=== PATIENT | female | born 1955 | race Caucasian/White ===

== ENCOUNTER 2018-07-10 15:01 | Outpatient (CLI) | payer OTHER, SELFPAY ==
--- NOTE | 2018-07-10 14:59 | DI.RAD_ITS ---
SYMPTOMS/DIAGNOSIS: F/U HX OF DISTAL RADIUS FX, RADIAL PAIN LEFT WRIST: Three views were obtained. There is minimal deformity of the distal radius consistent with a healed fracture. The carpal alignment appears within normal limits. No other bony abnormality seen.
== END 2018-07-10 15:21 ==
PROVIDERS: PCP Family Medicine; Visit Provider Student in an Organized Health Care Education/Training Program
DX: M25.532 Pain in left wrist (principal); S52.572D Other intraarticular fracture of lower end of left radius, subsequent encounter for closed fracture with routine healing
CPT/HCPCS: 73110

== ENCOUNTER 2018-07-25 12:47 | Day surgery (SDC) | payer OTHER, SELFPAY ==
[2018-07-25 12:58] VITALS: BP 161/50; PULSE 70; RESP 18; TEMP 36; O2SAT 98
--- NOTE | 2018-07-25 14:06 | W.PM.DSUDISC ---
Discharge Plan Disposition Patient Disposition: HOME Condition: Good Discharge Details Reason For Visit: Left Dequervain's Tenosynovitis Attending Provider: Kyle Browning Primary Care Provider: Aparna Crocker Home Meds and New Rx's Prescriptions: New hydrocodone-acetaminophen 5-325 mg tablet 1 tab PO Q4H PRN (Reason: pain) Qty: 5 RF: 0 ibuprofen 600 mg tablet 600 mg PO TID PRNQty: 90 RF: 3 acetaminophen 500 mg capsule 1,000 mg PO Q8H PRN (Reason: pain) Qty: 90 RF: 0 Continue carvedilol [Coreg] 6.25 MG tablet 6.25 mg PO BID Qty: 180 RF: 5 lisinopril 10 MG tablet 10 mg PO DAILY Qty: 90 RF: 3 Discharge Instructions Additional Instructions: Activity: You should keep the hand elevated as much as possible for the first few days. You may use the other fingers as tolerated but avoid trying to do too much too soon. You may perform light activities with the splint in place. Dressing/Cast: Your splint should stay in place at all times. Do NOT get it wet. You may loosen the SERA wrap if you feel it is too tight and then rewrap more loosely. Medications: - You should take Tylenol and Ibuprofen for baseline pain control. - You have Hydrocodone for breakthrough pain. - You may apply ice over the thumb. Follow-up: 7-10 days Equipment/Supplies: Splint and Sling Activity:: Elevate Remove Dressings/Wound Care:: Do Not Remove Shower/Bathe:: Cover Diet:: As Tolerated Discharge Orders Discharge Orders: Discharge Order (Routine); Ordered 07/25/18 Ordered By: Kyle Browning DS: Diagnosis Discharge Diagnosis (1) De Quervain's tenosynovitis, left: Status: Acute
[2018-07-25] MEDS: Lactated Ringers 1,000 ML 80 ML IV (14:07)
[2018-07-25] MEDS: Lidocaine 1% Pres-Free 5 ML VIAL (14:53)
[2018-07-25] MEDS: Acetaminophen 325 MG TAB 650 MG PO (15:32)
[2018-07-25 15:45] VITALS: BP 149/68; PULSE 82; RESP 16; TEMP 36.7; O2SAT 94
--- NOTE | 2018-07-26 06:36 | ROE_ITS ---
Date of service: 07/25/18 Time of Service: 15:33 Operative Note DATE OF PROCEDURE: 07/25/18 PRE-OP DIAGNOSIS: Left Dequervain's Tenosynovitis POST-OP DIAGNOSIS: same PROCEDURE: Left First Extensor Compartment Release SURGEON: Kyle Browning ANESTHESIA: MAC ESTIMATED BLOOD LOSS: 0 PATHOLOGY: none sent TOURNIQUET TIME: 13 COMPLICATIONS: None Patient was transported to: same day Patient's condition: stable Indications: Hanh is a 62-year-old female who has had symptoms of Dequervain's tenosynovitis. Nonoperative treatment options had been trialed. Given their failure, I offered operative intervention. I reviewed the technical details of a first extensor compartment release. I reviewed the risk of the procedure to include bleeding, infection, pain, stiffness, tendon instability, damage to the superficial radial nerve, and complete release. Despite these risks, the patient elected to proceed. Findings: There was a tightened first extensor compartment. There was a small sub-compartment of the EPB tendon which is released separately. There also was a bony ridge from previous distal radius fracture which was smoothed down with a rongeur and rasp. Procedure Description: Hanh was greeted in the preoperative holding area. Name and surgical site were confirmed. The history and physical was completed. The consent was reviewed the patient and signed. Hanh was taken back to the operating room. The patient was placed and monitored anesthesia care. The left was then prepped with ChloraPrep and draped in a standard fashion after a nonsterile tourniquet was placed high up onto the arm. Prophylactic antibiotics in the form of cefazolin were administered. A timeout was performed for safe surgery. The surgical site was drawn on the skin. The planned surgical field was anesthetized with 0.25% bupivacaine with epinephrine. The limb was exsanguinated and the tourniquet was inflated where it stayed for 13 minutes. A 2 cm incision was made longitudinally over the radial styloid. The skin was incised only. The deep tissue and subcutaneous fat was dissected with a tenotomy scissors trying to protect bridge of the superficial radial nerve. Any branches that were identified were retracted out of the way. The first compartment extensor tendons were then identified. The distal aspect of the first compartment was noted and were released. This release was performed more on the dorsal side to prevent tendon subluxation. The entirety of the first extensor compartment was then released. The slips of the abductor pollicis longus tendon were inspected. They removed to confirm the appropriate motion of the thumb. The extensor pollicis brevis tendon was then identified. It did reside within a separate sub-compartment which was fully released. Traction on the tendon was also used to confirm appropriate extension of the thumb confirming the release of the appropriate tendon. The dorsal radial surface of the radius was once again inspected to make sure there are no other sub- compartments or other restrictions to tendon motion. The wound was then thoroughly irrigated. The deep tissue was closed with a 3-0 Vicryl. The skin was closed with a running subjective 4-0 Monocryl. Skin glue was applied. The tourniquet is released without significant bleeding. The hand was dressed with 4 x 4's, web roll, thumb spica splint. All counts are correct. Patient was transferred back to same day surgery area in stable condition.
== END 2018-07-25 16:35 | disposition home or self-care (01) ==
PROVIDERS: PCP Family Medicine; Visit Provider Student in an Organized Health Care Education/Training Program
PROC: (CPT 25000; principal; 2018-07-25 13:45)
DX: M65.4 Radial styloid tenosynovitis [de Quervain] (principal)
CPT/HCPCS: 25000 ×2; J0690; J2405; L3650

== ENCOUNTER 2018-08-27 00:43 | Outpatient (CLI) | payer OTHER, SELFPAY ==
--- NOTE | 2018-08-27 07:30 | MERGE_ITS ---
*[facility]* *[facility]* [address] [place] [address] Date of study: 08/27/2018 Transthoracic Echocardiography M-mode, complete 2D, complete spectral Doppler, and color Doppler *STUDY CONCLUSIONS* Summary: 1. Left ventricle: The cavity size was normal. Wall thickness was normal. Systolic function was at the lower limits of normal. The estimated ejection fraction was 50-55%. Wall motion was normal; there were no regional wall motion abnormalities. 2. Mitral valve: Moderately thickened leaflets. Mild, late systolicprolapse, involving the anterior leaflet. There was mild regurgitation. 3. Right ventricle: The cavity size was normal. Wall thickness was normal. Pacer wire noted in right ventricle. Systolic function was normal. *PATIENT PRESENTATION* Height: 170.2cm ((67in) ) S/D Pressure: 145 / 82 Weight: 56.7kg ((124.7lb) ) BSA: 1.63m^2 Test start time: 07:40 AM. Test stop time: 08:40 AM. CONSULTING Aparna Crocker Kim Fnp-Bc REFERRING Gianna Stockton-Harsha PERFORMING [facility] TUBE WRAPPER RT Ryan RDCS (R CT) *PROCEDURE DATA* Procedure information: The patient was identified by two identifiers. This study was interpreted by [facility]. Pertinent images and digital data are archived for permanent storage and are available for subsequent review. Comparison was made to the study of 2014. Study status: Routine. Transthoracic echocardiography. M-mode, complete 2D, complete spectral Doppler, and color Doppler. A Transthoracic Echocardiogram was performed. Scanning was performed from the parasternal, apical, subcostal, and suprasternal notch acoustic windows. Images were obtained using an [id number] cardiac ultrasound machine. Image quality was adequate. Study completion: The patient tolerated the procedure well. There were no complications. History: PMH: Idopathic cardimyopathy. *CARDIAC ANATOMY* Left ventricle: The cavity size was normal. Wall thickness was normal. Systolic function was at the lower limits of normal. The estimated ejection fraction was 50-55%. Wall motion was normal; there were no regional wall motion abnormalities. Aortic valve: Trileaflet; mildly thickened, mildly calcified leaflets. Mobility was not restricted. Doppler: Transvalvular velocity was within the normal range. There was no stenosis. There was no significant regurgitation. VTI ratio of LVOT to aortic valve: 0.73. Valve area (VTI): 2.3cm^2. Indexed valve area (VTI): 1.4cm^2/m^2. Peak velocity ratio of LVOT to aortic valve: 0.72. Valve area (Vmax): 2.2cm^2. Indexed valve area (Vmax): 1.4cm^2/m^2. Mean velocity ratio of LVOT to aortic valve: 0.75. Valve area (Vmean): 2.3cm^2. Indexed valve area (Vmean): 1.4cm^2/m^2. Mean gradient (S): 3.1mm Hg. Peak gradient (S): 6mm Hg. Aorta: Aortic root: The aortic root was normal in size. Ascending aorta: The ascending aorta was normal in size. Mitral valve: Moderately thickened leaflets. Mobility was not restricted. Mild, late systolicprolapse, involving the anterior leaflet. Doppler: Transvalvular velocity was within the normal range. There was no evidence for stenosis. There was mild regurgitation. Valve area by pressure half-time: 3.3cm^2. Indexed valve area by pressure half-time: 2cm^2/m^2. Left atrium: The atrium was normal in size. Right ventricle: The cavity size was normal. Wall thickness was normal. Pacer wire noted in right ventricle. Systolic function was normal. Pulmonic valve: The pulmonary valve appears to be grossly normal. Doppler: Transvalvular velocity was within the normal range. There was no evidence for stenosis. There was trivial regurgitation. Peak gradient (S): 1.9mm Hg. Tricuspid valve: Structurally normal valve. Doppler: Transvalvular velocity was within the normal range. There was no evidence for stenosis. There was trivial regurgitation. Pulmonary artery: Pulmonary systolic pressure was within the normal range, in the range of 30mm Hg to 35mm Hg. Right atrium: The atrium was normal in size. Pacer wire noted in right atrium. Pericardium: There was no pericardial effusion. Systemic veins: Inferior vena cava: Well visualized. The vessel was patent and normal in size. The respirophasic diameter changes were in the normal range (greater than or equal to 50%). Baseline ECG: Paced rhythm. Measurements Left ventricle Value Reference LV ID, ED, PLAX 4.7 cm 3.5 - 6.0 LV ID, ES, PLAX 3.6 cm 2.1 - 4.0 LV PW thickness, ED, PLAX 1.0 cm LV end-diastolic volume, 1-p A2C 91 ml LV ejection fraction, 1-p A2C 59 % LV end-diastolic volume, 1-p A4C 85 ml LV ejection fraction, 1-p A4C 48 % LV e', lateral 0.059 m/sec LV E/e', lateral 9 LV e', medial 0.049 m/sec LV E/e', medial 11 LV e', average 0.054 m/sec LV E/e', average 10 Ventricular septum Value Reference IVS thickness, ED, PLAX 1.0 cm LVOT Value Reference LVOT ID, A-P 2.0 cm LVOT area 3.1 cm^2 LVOT peak velocity, S 0.89 m/sec LVOT mean velocity, S 0.63 m/sec LVOT VTI, S 16.9 cm LVOT peak gradient, S 3.2 mm Hg LVOT mean gradient, S 1.8 mm Hg Stroke volume (SV), LVOT DP 52 ml Stroke index (SV/bsa), LVOT DP 32 ml/m^2 Aortic valve Value Reference Aortic valve peak velocity, S 1.2 m/sec Aortic valve mean velocity, S 0.83 m/sec Aortic valve VTI, S 23.0 cm Aortic mean gradient, S 3.1 mm Hg Aortic peak gradient, S 6 mm Hg VTI ratio, LVOT/AV 0.73 Aortic valve area, VTI 2.3 cm^2 Velocity ratio, peak, LVOT/AV 0.72 Aortic valve area, peak velocity 2.2 cm^2 Velocity ratio, mean, LVOT/AV 0.75 Aortic valve area, mean velocity 2.3 cm^2 Aortic valve area/bsa, mean velocity 1.4 cm^2/m^2 Aorta Value Reference Aortic root ID, ED 3.0 cm Left atrium Value Reference LA ID, A-P, ES 3.0 cm LA ID/bsa, A-P 1.9 cm/m^2 <=2.2 LA area, ES, A4C 15.9 cm^2 8.8 - 23.4 LA area, ES, A2C 16 cm^2 LA volume/bsa, ES, 1-p A4C 29 ml/m^2 LA volume, ES, 2-p 41 ml LA volume/bsa, ES, 2-p 25 ml/m^2 LA/aortic root ratio 1.02 Mitral valve Value Reference Mitral E-wave peak velocity 0.52 m/sec Mitral A-wave peak velocity 0.62 m/sec Mitral deceleration time 228 ms 150 - 230 Mitral pressure half-time 66 ms Mitral E/A ratio, peak 0.83 Mitral valve area, PHT, DP 3.3 cm^2 Pulmonary veins Value Reference Pulmonary vein peak velocity, S 0.56 m/sec Pulmonary vein peak velocity, D 0.46 m/sec Pulmonary vein velocity ratio, peak, 1.2 S/D Pulmonary vein A-wave reversal peak 0.36 m/sec velocity Tricuspid valve Value Reference Tricuspid regurg peak velocity 2.8 m/sec Tricuspid peak RV-RA gradient 30.5 mm Hg Right atrium Value Reference RA area, ES, A4C 13.9 cm^2 8.3 - 19.5 Pulmonic valve Value Reference Pulmonic peak gradient, S 1.9 mm Hg Legend: (L) and (H) loyda values outside specified reference range. I have personally reviewed the images and have reviewed and edited the reported findings. Electronically signed by Mt Thurman 08/27/2018 10:37
== END 2018-08-27 01:03 ==
PROVIDERS: PCP Family Medicine; Visit Provider Nurse Practitioner Family
DX: I42.9 Cardiomyopathy, unspecified (principal); I34.0 Nonrheumatic mitral (valve) insufficiency; Z95.0 Presence of cardiac pacemaker
CPT/HCPCS: 93306

== ENCOUNTER 2018-08-30 07:37 | Outpatient (CLI) | payer OTHER, SELFPAY ==
[2018-08-30 08:37] LABS: Hemoglobin A1C 5.8 % (4.5-6.2)
[2018-08-30 09:24] LABS: ALT 21 U/L (12-78); AST 18 U/L (15-37); Albumin 3.5 g/dL (3.4-5.0); Alkaline Phosphatase 103 U/L (46-116); BUN 12 mg/dL (7-18); Bilirubin, Total 0.7 mg/dL (0.2-1.0); CREATININE 0.69 mg/dL (0.55-1.02); Calcium 8.9 mg/dL (8.5-10.1); Chloride 107 mmol/L (98-107); Cholesterol 178 mg/dL (50-200); Glucose 102 mg/dL (70-100); HDL Cholesterol 54 mg/dL (40-60); LDL CHOLESTEROL 111 mg/dL (<100); Magnesium 1.8 mg/dL (1.8-2.4); Potassium 4.7 mmol/L (3.5-5.1); Sodium 143 mmol/L (136-145); TSH 2.23 uIU/mL (0.358-3.74); Total Protein 6.8 g/dL (6.4-8.2); Triglyceride 71 mg/dL (30-150)
== END 2018-08-30 07:57 ==
PROVIDERS: PCP Family Medicine; Visit Provider Nurse Practitioner Family
DX: Z00.00 Encounter for general adult medical examination without abnormal findings (principal); I42.9 Cardiomyopathy, unspecified; R73.9 Hyperglycemia, unspecified
CPT/HCPCS: 36415; 80053; 80061; 83721; 83036; 83735; 84443

== ENCOUNTER 2020-04-09 03:56 | Outpatient (CLI) | payer OTHER, SELFPAY ==
--- NOTE | 2020-04-09 06:15 | DI.MAMMO_ITS ---
EXAM: MAMMO SCREENING CLINICAL HISTORY: screening,z12.39 TECHNIQUE: Mammograms were interpreted according to the usual protocol including computer analysis w [employer] CAD system, tomosynthesis and C-view imaging. COMPARISON: 2014 through 2017 FINDINGS: The breasts are composed of scattered fibroglandular densities, Breast Density category B. A pacemaker over the left upper chest wall somewhat limits positioning of the left MLO view. No suspicious masses or suspicious microcalcifications are seen. No skin thickening or abnormal axillary lymph nodes are seen. There has been no significant change from prior exams. IMPRESSION: BI-RADS Category 1, Negative mammogram Yearly screening mammography is recommended. Breast Density - Category B, scattered fibroglandular densities. A negative radiographic report should not delay biopsy if a dominant or clinically suspicious mass is present. Up to ten percent of cancers are not identified on mammography. A negative report may reinforce clinical impression. Adenosis and dense breasts may obscure an underlying neoplasm. False positive reports average 6 to 10%. Patient will receive a letter notifying them of these results.
== END 2020-04-09 04:16 ==
PROVIDERS: PCP Family Medicine; Visit Provider Family Medicine
DX: Z12.31 Encounter for screening mammogram for malignant neoplasm of breast (principal); R92.2 Inconclusive mammogram
CPT/HCPCS: 77063; 77067

== ENCOUNTER 2021-07-26 02:49 | Outpatient (CLI) | payer OTHER, SELFPAY ==
[2021-07-26 07:53] LABS: Hemoglobin A1C 5.7 % (<5.7)
[2021-07-26 08:49] LABS: ALT 27 U/L (14-59); AST 20 U/L (15-37); Albumin 3.6 g/dL (3.4-5.0); Alkaline Phosphatase 91 U/L (46-116); Anion Gap 7.1 mmol/L (3-11); BUN 23 mg/dL (7-18); Bilirubin, Total 0.4 mg/dL (0.2-1.0); CO2 31.9 mmol/L (21.0-32.0); CREATININE 0.8 mg/dL (0.55-1.02); Calcium 9.3 mg/dL (8.5-10.1); Calculated LDL 120 mg/dL (<100); Chloride 103 mmol/L (98-107); Cholesterol 184 mg/dL (<200); Glucose 128 mg/dL (74-106); HDL Cholesterol 36 mg/dL (40-60); Potassium 4.5 mmol/L (3.5-5.1); Sodium 142 mmol/L (136-145); Total Protein 7.1 g/dL (6.4-8.2); Triglyceride 140 mg/dL (<150)
== END 2021-07-26 02:50 | disposition home or self-care (01) ==
LOC: LBO 02:50
PROVIDERS: PCP Family Medicine; Visit Provider Family Medicine
DX: I10 Essential (primary) hypertension (principal); Z00.00 Encounter for general adult medical examination without abnormal findings
CPT/HCPCS: 36415; 80053; 80061; 83036

== ENCOUNTER 2021-08-05 01:05 | Outpatient (CLI) | payer OTHER, SELFPAY ==
--- NOTE | 2021-08-05 06:45 | DI.MAMMO_ITS ---
Exam(s) MAMMO SCREENING EXAM: MAMMO SCREENING CLINICAL HISTORY: screening,z12.39 TECHNIQUE: Bilateral full field digital CC and MLO mammographic images were obtained with 3D tomosyn thesis and utilizing computer aided detection (CAD). COMPARISON: Available for comparison. FINDINGS: Masses/Architectural Distortion: None seen. Microcalcifications: No suspicious pleomorphic-type are seen. Skin Thickening/Nipple Retraction: None. Other: The patient is left pacing device limits positioning on the left MLO view. IMPRESSION: 1. No significant interval change with no specific features of malignancy noted. 2. Unless there is more urgent need, screening mammography is recommended, as per [employer] guidelines. BI-RADS Category 1 - Negative Breast Density - Category B - Scattered areas of fibroglandular density Breast density category C or D implies that the patient has dense breast tissue. Dense breast tissue is very common and is not abnormal but dense breast tissue can make it harder to find cancer on a ma mmogram. Also, dense breast tissue may increase their breast cancer risk. This information about the result of the mammogram report was provided to the patient to raise their awareness. Use this report when you speak with the patient about their risks for breast cancer, which includes their family hist ory. At that time, you may recommend for more screening tests (Ultrasound or MRI) as they might be us eful based on their risk. A negative radiographic report should not delay biopsy if a dominant or clinically suspicious mass is present. Up to ten percent of cancers are not identified on mammography. A negative report may reinforce clinical impression. Adenosis and dense breasts may obscure an underlying neoplasm. False positive reports average 6 to 10%. Patient will receive a letter notifying them of these results.
== END 2021-08-05 01:25 ==
PROVIDERS: PCP Family Medicine; Visit Provider Family Medicine
DX: Z12.31 Encounter for screening mammogram for malignant neoplasm of breast (principal)
CPT/HCPCS: 77063; 77067

== ENCOUNTER 2022-05-11 08:41 | Outpatient (REF) | payer OTHER, SELFPAY ==
[2022-05-11 08:44] LABS: Source Nasal/Nares
[2022-05-11 09:18] LABS: COVID-19 PCR Negative (Negative)
== END 2022-05-11 08:42 | disposition home or self-care (01) ==
LOC: LBN 08:41
PROVIDERS: PCP Family Medicine; Visit Provider Obstetrics & Gynecology
DX: Z20.822 Contact with and (suspected) exposure to COVID-19 (principal)
CPT/HCPCS: 87635

== ENCOUNTER 2022-05-11 15:08 | Outpatient (CLI) | payer OTHER, SELFPAY ==
--- NOTE | 2022-05-11 15:00 | RT.EKG_ITS ---
APPROVED REPORT Exam: Resting ECG Reason for Exam: chest discomfort Patient Location: O HR:135 bpm ECG Measurements Heart Rate 135 AXIS TX 36 P 0 QRSd 149 QRS 66 QT 358 T 196 QTc 537 Conclusion Ventricular-paced complexes...other complexes also detected No further rhythm analysis attempted due to paced rhythm Left bundle branch block...QRSd>120, broad/notched R Baseline wander in lead(s) V4
== END 2022-05-11 15:09 | disposition home or self-care (01) ==
LOC: DI.CM 15:09
PROVIDERS: PCP Family Medicine; Visit Provider Nurse Practitioner Family
DX: R07.89 Other chest pain (principal); R94.31 Abnormal electrocardiogram [ECG] [EKG]; I44.7 Left bundle-branch block, unspecified
CPT/HCPCS: 93010

== ENCOUNTER 2022-05-11 15:49 | Emergency (ER) | payer OTHER, SELFPAY ==
[2022-05-11] VITALS (50 sets, daily range): BP systolic 140; BP diastolic 76; PULSE 120–145; RESP 15–31; TEMP 37.2; O2SAT 94–99
--- NOTE | 2022-05-11 15:45 | RT.EKG_ITS ---
APPROVED REPORT Exam: Resting ECG Reason for Exam: irreg HR Patient Location: E HR:142 bpm ECG Measurements Heart Rate 142 AXIS TX 39 P 0 QRSd 143 QRS 0 QT 383 T 193 QTc 591 Conclusion Sinus tachycardia. Left bundle branch block. Similar to previous
--- NOTE | 2022-05-11 16:15 | DI.RAD_ITS ---
Exam(s) XR CHEST 2V PA LATERAL EXAM: XR CHEST 2V PA LATERAL CLINICAL HISTORY: cough, sputum TECHNIQUE: 2D digital imaging was performed. COMPARISON: CR PORTABLE AP CHEST from 04/19/2011 FINDINGS: A pacemaker is present. HEART: Normal size. Aorta: PULMONARY VASCULATURE: Normal. LUNGS: Hyperinflation. Mild fibrotic changes. PLEURAL SPACE: No pleural effusion or pneumothorax. BONE:Unremarkable for age. IMPRESSION: No acute abnormality. DATA REPOSITORY: RADIATION DOSE DELIVERED:
--- NOTE | 2022-05-11 16:22 | W.ED.GENAD ---
Discharge Plan Disposition Patient Disposition: HOME Condition: Improving Discharge Details Clinical Impression: Pneumonia Primary Care Provider: Aparna Crocker ED Provider: Efe De León Home Meds and New Rx's Prescriptions: New cefdinir 300 mg capsule 300 mg PO Q12H 10 Days Qty: 20 0RF Continued cholecalciferol (vitamin D3) 2,000 unit capsule 2,000 unit PO DAILY carvedilol 6.25 mg tablet 6.25 mg PO BID Qty: 180 3RF Rx Instructions: must administer with a meal/food hydrochlorothiazide 12.5 mg tablet 12.5 mg PO DAILY Qty: 90 6RF lisinopril 20 mg tablet 20 mg PO DAILY Qty: 90 12RF acetaminophen 500 mg capsule 1,000 mg PO Q8H PRN (Reason: pain) Qty: 90 0RF Discharge Instructions Instructions: Pneumonia (ED) Additional Instructions: Home to rest this evening. Continue your routine medications including her evening carvedilol. Next dose of antibiotic will be tomorrow morning. Please take until the entire course is finished over 10 days time. Return to the ER for any acute concern Medical Decision Making 66-year-old female presents on referral from urgent care. She has a history of cardiomyopathy with indwelling ICD. She has had 4 to 5 days of cough with significant congestion and production of yellow sputum. While at the urgent care she was noted to have elevated heart rate with left bundle branch block and was referred to the ER. The patient initially had a wide-complex regular tachycardia similar to previous. After fluids were initiated she had a correction of heart rate to approximately 100 and was found to be in a and V paced rhythm with a rate of 90. Laboratories note a white count of 18, hematocrit 41, platelets 211. Chemistries show reassuring electrolytes, BUN of 28 and creatinine 1.0. Magnesium is low at 1.6 and supplemented in the emergency department. BUN is elevated over baseline consistent with prerenal dehydration. Chest x-ray with central peribronchial thickening and a focal region of density at the lateral right mid upper lung. Given the elevated white blood cell count, history of production of sputum and x-ray findings, I do feel it is most reasonable to treat for a developing pneumonia. Patient is improved following fluids, her heart rate is dramatically better. She feels subjectively improved. I will place her on a course of oral cephalosporin. She is stable for outpatient management. Lab Data Lab results reviewed: Yes I reviewed the patient's lab results. Labs: Laboratory Results - last 24 hr 05/11/22 05/11/22 16:51 17:15 WBC 18.31 H RBC 4.42 Hgb 14.2 Hct 41.5 MCV 94 MCH 32.1 MCHC 34.2 RDW 12.2 Plt Count 211 MPV 10.7 Immature Gran % See Differential Neutrophils % 77.0 Band Neutrophils % 1 Lymphocytes % 9.0 Atypical Lymphs % 2 Monocytes % 10.0 Eosinophils % 1.0 Basophils % 0.0 Nucleated RBC % 0.0 Absolute Neutrophils 14.28 H Absolute Lymphocytes 2.01 Absolute Monocytes 1.83 H Absolute Eosinophils 0.18 Absolute Basophils 0.00 RBC Morphology Normal Sodium 139 Potassium 3.9 Chloride 101 Carbon Dioxide 30.1 Anion Gap 7.9 BUN 28 H Creatinine 1.0 Est GFR (CKD-EPI 2020) 62.52 Glucose 141 H Calcium 9.8 Magnesium 1.6 L Total Bilirubin 0.8 AST 17 ALT 16 Alkaline Phosphatase 84 Troponin I < 50 Total Protein 8.0 Albumin 3.7 TSH 0.97 HPI General Mode of arrival: ambulatory. Date/Time Provider Initiated Documentation: 05/11/22 15:52. Limitations to Documentation: no limitations. Information obtained by: patient. History of Present Illness 66 year old F presents to the emergency department with the chief complaint of Cough, congestion and production of sputum, described as moderate, Quality is described as dull, and is localized to the chest. Patient reports no radiation. Patient started experiencing this day(s) and it has been intermittent. No relieving factors improve symptom(s), No exacerbating factors reported . Patient notes cough and other (Positive palpitations); denies chest pain, shortness of breath, syncope and weakness. Patient did receive the following treatments prior to arrival, none Related Data Home Medications Medication Instructions Recorded Confirmed acetaminophen 500 mg capsule 1,000 mg PO Q8H PRN pain #90 caps 07/25/18 04/26/22 cholecalciferol (vitamin D3) 50 2,000 unit PO DAILY 05/08/19 05/11/22 mcg (2,000 unit) capsule lisinopril 20 mg tablet 20 mg PO DAILY #90 tabs 02/24/21 05/11/22 carvedilol 6.25 mg tablet 6.25 mg PO BID #180 tabs 06/21/21 05/11/22 hydrochlorothiazide 12.5 mg tablet 12.5 mg PO DAILY #90 tabs 06/21/21 05/11/22 cefdinir 300 mg capsule 300 mg PO Q12H 10 days #20 caps 05/11/22 Previous Rx's Medication Instructions Recorded acetaminophen 500 mg capsule 1,000 mg PO Q8H PRN pain #90 caps 07/25/18 lisinopril 20 mg tablet 20 mg PO DAILY #90 tabs 02/24/21 carvedilol 6.25 mg tablet 6.25 mg PO BID #180 tabs 06/21/21 hydrochlorothiazide 12.5 mg tablet 12.5 mg PO DAILY #90 tabs 06/21/21 cefdinir 300 mg capsule 300 mg PO Q12H 10 days #20 caps 05/11/22 Allergies Allergy/AdvReac Type Severity Reaction Status Date / Time No Known Allergies Allergy Verified 05/11/22 15:04 General Stated Complaint: Palpitatns CHRISTY: 2 PFSH All Active Problems (Updated 05/11/22 @ 19:01 by Efe De León MD) Pneumonia (Acute) Ulnar nerve external compression syndrome (Acute) Biventricular implantable cardioverter-defibrillator (ICD) in situ (Acute) Poor sleep (Acute) Hypertension (Chronic) Annual physical exam (Acute) History of hysterectomy (Acute) Impaired fasting glucose (Acute 11/30/10) Low back pain (Acute 11/05/14) Primary cardiomyopathy (Acute 03/19/11) De Quervain's tenosynovitis, left (Acute) Status post release on 07/25/2018 Medical History (Updated 05/11/22 @ 19:01 by Efe De León MD) ACL tear (10/14/08) As shown in MRI dated 10/09/08- partial tear Acute bilateral low back pain 11/05/14 Acute medial meniscus tear (10/14/08) As shown in MRI dated 10/09/08- partial tear near the femoral attachment. Tear of the body of the medial meniscus. Annual physical exam (12/02/15) Cardiomyopathy (11/05/14) 03/19/11 primary, EF 20%, frequent PVC's cardiac meds; ICD in place - never gone off Impaired fasting glucose 11/30/10 Surgical History H/O: hysterectomy Implantation of automatic cardioverter/defibrillator, total system (AICD) (~09/2016) ORTHO (~06/2016) WRIST FX Pacemaker (~11/2015) Family History Mother , AGE 82 Stroke Heart disease Father , OLD AGE at age 87 Heart disease CHF Sister Stroke Brother No problems noted. Brother Substance abuse Diabetes Brother , age 59 Substance abuse Daughter No problems noted. Daughter No problems noted. 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 Pets and animals: Yes Pets and animals: dog(s) Sexually active: Yes Do you think of yourself as: straight/heterosexual Current gender identity: female What is your relationship status?: How often do you talk on the phone with friends or family?: three or more times per week How often do you get together with friends or relatives?: once per week How often do you attend buddhist or religion services?: decline to answer Do you belong to any clubs or organized social groups?: no Panel score (0-1 are the most socially isolated patients): 2 What type of physical activity do you participate in: decline to answer Duration: < 15 minutes/day Frequency: decline to answer Effie/Confucianism: No preference Special effie needs: No Seatbelt use: always Helmet use: No Drive intox or ride w/intox driver wheelchair: No Do you feel safe at home: Yes Do you feel safe in your relationship?: Yes Exam Narrative Exam Narrative: GEN: awake, alert, oriented 3. Pleasant, well groomed, interactive. HEAD: Normocephalic, atraumatic ENT: Mucous membranes moist, oropharynx unremarkable, External ear exam unremarkable EYES: PERRL, EOMI NECK: Full ROM, no LD, no menigismus CHEST/RESP: Nontender, clear to auscultation bilateral, no wheeze/rhonchi/rales CARDIOVASCULAR: Regular and tachycardic, no murmur, rub franchesca. 2+ Rad pulse bilateral ABDOMEN: Soft, nontender, no mass. +Bowel sounds EXT: Full ROM, no edema, no rash Neuro: Grossly normal neurologic exam, conversant, interactive. Psych: Speech fluent, thoughts congruent, affect normal Course Vital Signs Vital signs: Vital Signs Temperature 37.2 C 05/11/22 15:58 Pulse 145 H 05/11/22 15:58 Respiratory Rate 20 05/11/22 15:58 Blood Pressure 140/76 05/11/22 15:58 Pulse Oximetry 99 05/11/22 15:58 Temperature 37.2 C 05/11/22 15:58 Temperature Source Temporal Artery Scan 05/11/22 15:58 Pulse 145 H 05/11/22 15:58 Respiratory Rate 20 05/11/22 15:58 Respiratory Effort Non-Labored 05/11/22 16:03 Blood Pressure 140/76 05/11/22 15:58 Blood Pressure Position Sitting 05/11/22 15:58 Pulse Oximetry 99 05/11/22 15:58 Oxygen Delivery Method Room Air 05/11/22 15:58 Oxygen Flow Rate 0 05/11/22 15:58 Pain Level 0 05/11/22 15:58
[2022-05-11] MEDS: Normal Saline 1,000 ML 1000 ML IV ×2 (17:00→18:25)
[2022-05-11] MEDS: Metoprolol 5 MG/5 ML VIAL 2.5 MG IVP (17:00)
--- NOTE | 2022-05-11 17:00 | RT.EKG_ITS ---
APPROVED REPORT Exam: Resting ECG Reason for Exam: change in HR Patient Location: E HR:92 bpm ECG Measurements Heart Rate 92 AXIS MN 152 P 84 QRSd 143 QRS 91 QT 413 T 87 QTc 511 Conclusion Atrial-sensed ventricular-paced rhythm...ventricular pacing tracks p-waves Biventricular paced rhythm...non-simultaneous bi-vent pacing
[2022-05-11 17:01] LABS: HCT 41.5 % (36.0-46.0); HGB 14.2 g/dL (11.2-15.7); MCH 32.1 pg (27.0-33.0); MCHC 34.2 % (32.0-36.0); MCV 94 fL (80-95); MPV 10.7 fL (8.0-11.0); Platelet Count 211 10^3/uL (130-400); RBC 4.42 10^6/uL (3.93-5.22); RDW 12.2 % (11.7-14.6); RDW-SD 42.6 fL; WBC 18.31 10^3/uL (4.4-10.8)
[2022-05-11 17:20] LABS: Absolute Eosinophil Count 0.18 10^3/uL (0.0-0.7); Absolute Lymphocyte Count 2.01 10^3/uL (1.2-3.4); Absolute Monocyte Count 1.83 10^3/uL (0.1-0.8); Absolute Neutrophil Count 14.28 10^3/uL (1.2-6.7); Atypical Lymphocytes % 2; Bands % 1; Diff Comment Manual Differential; RBC Morphology Normal
[2022-05-11 17:26] LABS: ALT 16 U/L (14-59); AST 17 U/L (15-37); Albumin 3.7 g/dL (3.4-5.0); Alkaline Phosphatase 84 U/L (46-116); Anion Gap 7.9 mmol/L (3-11); BUN 28 mg/dL (7-18); Bilirubin, Total 0.8 mg/dL (0.2-1.0); CO2 30.1 mmol/L (21.0-32.0); Calcium 9.8 mg/dL (8.5-10.1); Chloride 101 mmol/L (98-107); Estimated GFR 62.52 (mL/min/1.73m2); Glucose 141 mg/dL (74-106); Magnesium 1.6 mg/dL (1.8-2.4); Potassium 3.9 mmol/L (3.5-5.1); Sodium 139 mmol/L (136-145); TSH (W/Ref FT4) 0.97 uIU/mL (0.36-3.74); Troponin I < 50 ng/L (<or=60)
[2022-05-11] MEDS: MAGNESIUM SULFATE 2 GM/50 ML BAG IVPB (17:53)
--- NOTE | 2022-05-11 17:54 | DI.VRAD_ITS ---
PROCEDURE INFORMATION: Exam: XR Chest Exam date and time: 05/11/2022 5:25 PM Age: 66 years old Clinical indication: Cough TECHNIQUE: Imaging protocol: Radiologic exam of the chest. Views: 2 views. COMPARISON: No relevant prior studies available. FINDINGS: Lungs: There is mild central peribronchial thickening. There is a focal region of tiny subcentimeter nodular branching density at the lateral right mid-upper lung, suggesting focal infectious small airways disease. There is no pulmonary vascular congestion. Pleural spaces: There are no pleural effusions present. There is no evidence of pneumothorax. Heart/Mediastinum: The cardiomediastinal silhouette is within normal limits. Vasculature: There is a left chest wall AICD with an electrode in the region of the right ventricle as well as right atrial and coronary sinus leads in place. Diaphragm: There is mild anterior eventration of the right hemidiaphragm. Bones/joints: Unremarkable. IMPRESSION: 1. Mild central peribronchial thickening which can be seen in the setting of bronchitis. Recommend clinical correlation. 2. Focus of infectious small airways disease within the right lung. Dictated and Authenticated by: Jesus Mercado MD. Ordering:HARVEY Wilks MD
[2022-05-11] MEDS: cefTRIAXone 1 GM/50 ML BAG IVPB (18:26)
== END 2022-05-11 20:32 | disposition home or self-care (01) ==
PROVIDERS: Emergency Provider Emergency Medicine; PCP Family Medicine
DX: J18.9 Pneumonia, unspecified organism (principal); R79.89 Other specified abnormal findings of blood chemistry; D72.829 Elevated white blood cell count, unspecified; I44.7 Left bundle-branch block, unspecified; F17.210 Nicotine dependence, cigarettes, uncomplicated; R00.0 Tachycardia, unspecified
CPT/HCPCS: 80053; 93005; 96361; 96365; 96366; 96368; 96375; 99284; 71046; 83735; 84443; 84484; 85025; 93010; J0696

== ENCOUNTER → 2022-06-29 02:08 | Outpatient (CLI) | payer OTHER, SELFPAY ==
--- NOTE | 2022-06-29 11:01 | DI.RAD_ITS ---
Exam(s) XR CHEST 2V PA LATERAL EXAM: XR CHEST 2V PA LATERAL CLINICAL HISTORY: recent pneumonia with recurrence, j18.9, TECHNIQUE: 2D digital imaging was performed of the chest. Two images were obtained. PA and lateral views were obtained. COMPARISON: CR,XR XR CHEST 2V PA LATERAL from 05/11/2022 FINDINGS: MEDIASTINUM: Normal. HEART: Normal. The cardiac device and wires are stable in position. PULMONARY VASCULATURE: Normal. LUNGS: Clear. PLEURAL SPACE: No pleural effusion or pneumothorax. BONE:Within normal limits for the patient's age. OTHER FINDINGS:Normal. IMPRESSION: No acute pulmonary findings. DATA REPOSITORY: RADIATION DOSE DELIVERED:
== END ==
PROVIDERS: PCP Family Medicine; Visit Provider Family Medicine
DX: J18.9 Pneumonia, unspecified organism (principal)
CPT/HCPCS: 71046

== ENCOUNTER 2022-11-22 01:11 | Outpatient (CLI) | payer OTHER, SELFPAY ==
--- NOTE | 2022-11-22 13:40 | DI.US_ITS ---
APPROVED REPORT EXAM: Comprehensive 2D, Doppler, and color-flow Echocardiogram Patient Location: Out-Patient Hospitality Associate: Conrado Tyler RDMS, RVT Indications: check LV function, primary cardiomyopathy Other Information Study Quality: Adequate Conclusion Normal left ventricular wall thickness and chamber size. Ejection fraction is 60 to 65%. Wall motio n is normal Normal right ventricular size and systolic function Both atria are normal in size Device lead is noted in the right heart Aortic valve is trileaflet and sclerotic without stenosis or regurgitation Mildly thickened mitral leaflets with mild systolic prolapse. There is moderate eccentric mitral reg urgitation Normal tricuspid valve with mild regurgitation. Estimated right ventricular systolic pressure is 26 mmHg Wall motion Left Ventricle The left ventricle is normal size. The left ventricular systolic function is normal. The left ventric ular ejection fraction is within the normal range. There is normal left ventricular wall thickness. T here is normal LV segmental wall motion. There is no ventricular septal defect visualized. LVEF is 60 -65%. Right Ventricle The right ventricle is normal size. The right ventricular systolic function is normal. The RVSP is 26 .4 mmHg. Pacemaker lead is present in the right ventricle. Atria The left atrium size is normal. The right atrium size is normal. The interatrial septum is intact wit h no evidence for an atrial septal defect. Aortic Valve The Aortic valve is sclerotic. Aortic valve is trileaflet. There is no aortic valvular stenosis. No aortic regurgitation is present. Mitral Valve Mitral valve leaflets are mildly thickened. No evidence of mitral valve stenosis. Moderate mitral re gurgitation. Mitral regurgitation jet is eccentrically directed. Mild mitral valve prolapse. Tricuspid Valve The tricuspid valve is normal in structure. There is no tricuspid valve stenosis. Mild tricuspid reg urgitation. Pulmonic Valve The pulmonary valve is normal in structure. There is no pulmonic valvular stenosis. Trivial pulmonic regurgitation. Great Vessels The aortic root is normal in size. Ascending aorta is normal in caliber. Aortic arch is not well visu alized. IVC is normal in size and collapses >50% with inspiration. Pericardium There is no pericardial effusion. 2D Dimensions IVSD d PLAX 0.82 cm F: 0.6-1.0 LV Vol A2C d MOD 123.6 mL LVPW d PLAX 0.85 cm F: 0.6 - 1.0 LV Vol A4C d MOD 91.7 mL LVID d PLAX 4.45 cm F: 3.8 - 5.2 LA vol/ BSA A4C s A-L 16.0 mL/m2 LVDs 2.90 cm F: 2.2 - 3.5 LA Area A4C s MOD 10.82 cm2 Ao Root d 2.73 cm F: 2.7 - 3.3 LV EF A4C MOD 63.0 % Ao Asc Diam d 2.89 cm F: 2.3 - 3.1 LV EF A2C MOD 61.5 % LV EF Teichholz 63.8 % LV EF Biplane MOD 61.2 % LVEF (Randle's) 61.24 % F: 54 - 74 SV 66.44 mL LV Volume 86.46 mL F: 46 - 106 SV Index 39.46 mL/m2 LV Volume Index 51.15 mL/m2 F: 29 - 61 LV Vol Biplane MOD 108.5 mL FS 34.50 % M-Mode TAPSE 1.96 cm (M/F) >1.7 LV Diastology MV E' medial 0.072 (>0.07 m/s) E/A Ratio 1.3 LV E/e MED 11.45 (<14) MV E Vmax 0.83 (0.4-1.3 m/s) MV E' lateral 0.070 (>0.1 m/s) MV A Vmax 0.65 (0.4-1.3 m/s) LV E/e LAT 11.85 (<14) MV E/A Ratio 1.24 MV E/E' medial 11.46 MV E/E' lateral 11.86 Aortic Valve LVOT Area 3.23 cm2 AoV Area Vmax 2.48 cm2 LVOT Vmax 0.93 m/s AoV Area/ BSA (Vmax) 1.47 cm2/m2 LVOT Mean Ernesto. 0.58 m/s FLOWER Mean Ernesto. 2.05 cm2 LVOT Peak Grad 3.5 mmHg FLOWER Mean Ernesto. Index 1.22 cm2/m2 LVOT Mean Grad 1.5 mmHg LVOT VTI 0.193 m LVOT Diam s 2.00 cm AoV Vmax 1.21 m/s Velocity Ratio 0.77 AoV Mean Ernesto. 0.91 m/s AoV Peak Grad 5.9 mmHg LVOT SV 62.36 mL AoV Mean Grad 3.5 mmHg AoV VTI 0.237 m AoV Area VTI 2.63 cm2 AoV Area/ BSA (VTI) 1.56 cm/m2 Mitral Valve MV DT 224 (160-240 msec) MV PHT 65 msec MV Area PHT 3.39 cm2 MV VTI 0.371 m MV Area VTI 1.68 (4.0-6.0 cm2) Pulmonary Valve RVOT Peak Gr. 1.18 mmHg RVOT Mean Gr. 0.60 mmHg RVOT VTI 0.098 m RVOT Vmax 0.54 m/s Tricuspid Valve TR Peak Grad 23.4 mmHg TR Vmax 2.42 m/s RA Pressure 3.00 mmHg RVSP (TR) 26.4 mmHg
== END 2022-11-22 01:31 ==
LOC: DI 01:11
PROVIDERS: PCP Family Medicine; Visit Provider Internal Medicine Cardiovascular Disease
DX: I42.8 Other cardiomyopathies (principal)
CPT/HCPCS: 93306

== ENCOUNTER 2023-08-09 09:46 | Outpatient (CLI) | payer OTHER, SELFPAY ==
[2023-08-09 11:31] LABS: ALT 23 U/L (14-59); AST 18 U/L (15-37); Albumin 3.7 g/dL (3.4-5.0); Alkaline Phosphatase 95 U/L (46-116); Anion Gap 1.6 mmol/L (3-11); BUN 20 mg/dL (7-18); Bilirubin, Total 0.8 mg/dL (0.2-1.0); CO2 34.4 mmol/L (21.0-32.0); CREATININE 0.8 mg/dL (0.55-1.02); Calcium 9.9 mg/dL (8.5-10.1); Chloride 102 mmol/L (98-107); Estimated GFR 81.21 (mL/min/1.73m2); Glucose 124 mg/dL (74-106); Potassium 5.2 mmol/L (3.5-5.1); Sodium 138 mmol/L (136-145); Total Protein 7.8 g/dL (6.4-8.2)
== END 2023-08-09 09:47 | disposition home or self-care (01) ==
LOC: LBO 09:47
PROVIDERS: PCP Family Medicine; Visit Provider Family Medicine
DX: I10 Essential (primary) hypertension (principal)
CPT/HCPCS: 36415; 80053

== ENCOUNTER → 2023-09-07 00:05 | Outpatient (CLI) | payer OTHER, SELFPAY ==
--- NOTE | 2023-09-07 08:00 | DI.CTLCSR_ITS ---
Exam(s) CT CHEST LUNG CANCER SCREEN EXAM: CT CHEST LUNG CANCER SCREEN CLINICAL HISTORY: Screening for lung cancer,current smoker, f17.210 TECHNIQUE: Imaging Protocol: Axial computed tomography images with coronal and sagittal reformatted images were created and reviewed. Low dose screening protocol. COMPARISON: CR XR CHEST 2V PA LATERAL from 06/29/2022 FINDINGS: Tracheobronchial tree: No bronchiectasis or mucus plugging.. Mediastinum and Gabriella: No dominant adenopathy or fluid collection. Pulmonary parenchyma: No consolidation or dominant measurable mass. Mild emphysematous changes. Tree -in-bud opacities the medial left upper lobe, inferior lingula and lateral the and right lower lobe m ay be related to infectious or inflammatory causes. Lung Nodules: Multiple tiny nodules noted in the left upper lobe, largest 4 millimeters. Pleura: No effusion. No pneumothorax. Heart: The heart is not dilated. No coronary artery calcifications are seen. Pacemaker leads. Aorta: Thoracic aorta non-dilated. Upper abdomen: Unremarkable. Bones: Unremarkable for age. Soft Tissues: Unremarkable. Pacemaker. IMPRESSION: No suspicious pulmonary nodules. Several nodules less than 4 millimeters in the left upper lobe. Areas of tree in bud opacities bilaterally could be secondary to infectious or inflammatory causes. Lung RADS Cat 2 - Benign Appearance / Behavior: Nodules with a very low likelihood of becoming a clin ically active cancer due to size or lack of growth Lung-RADS 1.0 CATEGORIES: Category 0 - Prior chest CT exam(s) being located for comparison. Category 1 - Annual screening in 12 months. No nodules or definitely benign nodules. Category 2 - Annual screening in 12 months. Benign appearance. Nodules with low likelihood of becomin g active cancer. Category 3 - 6-month follow-up. Probably benign. Short-term follow-up suggested. Nodules with low lik elihood of becoming active cancer. Category 4A - 3-month follow-up and CT/PET if >8 mm in size. Suspicious finding. Findings which requi re additional testing. Category 4B - Findings which require additional testing and tissue sampling. Category 4X - Category 3 or 4 nodules with additional features or imaging findings that increases the suspicion of malignancy. Modifier S- Potentially clinically significant findings (non lung cancer) RADIATION DOSE DELIVERED: 78.64mGy.cm Total DLP DATA REPOSITORY: All CT scans at this facility are submitted to the National Radiology Data Registry (NRDR) Dose Index Registry (DIR) with the [employer] ([employer]). RADIATION OPTIMIZATION: All CT scans at this facility use at least one of these dose optimization te chniques: automated exposure control; mA and/or kV adjustment per patient size (includes targeted exa ms where dose is matched to clinical indication); or iterative reconstruction.
--- NOTE | 2023-09-07 15:01 | DI.DEXA_ITS ---
Exam(s) XR DEXA BONE DENSITY W/WO LOLA EXAM: XR DEXA BONE DENSITY W/WO LOLA CLINICAL HISTORY: screening for osteoporosis in postmenopausal woman,z78.0 TECHNIQUE: [employer] Horizon C densitometer analysis of left hip, lumbar spine and right forearm. La teral survey image of the thoracic and lumbar spine. COMPARISON: CR LUMBAR SPINE COMPLETE from 04/06/2010 FINDINGS: Lateral view of the thoracic and lumbar spine shows no evidence of compression fractures. Bone mineral density measurements of the lumbar spine correspond to a total T-score of -2.4, in the osteopenic range. Bone mineral density measurements of the left hip correspond to a total T-score of -2.7. The femora l neck T-score is -3.0, in the osteoporotic range.. Theright forearm bone mineral density measurements correspond to a T-score of the distal 3rd of -1.9 , in the osteopenic range.. IMPRESSION: Osteopenia of the forearm and spine. Osteoporosis of the hip.
== END ==
PROVIDERS: PCP Family Medicine; Visit Provider Family Medicine
DX: Z12.31 Encounter for screening mammogram for malignant neoplasm of breast (principal); F17.211 Nicotine dependence, cigarettes, in remission; Z78.0 Asymptomatic menopausal state; Z12.2 Encounter for screening for malignant neoplasm of respiratory organs; Z13.820 Encounter for screening for osteoporosis
CPT/HCPCS: 71271; 77063; 77067; 77080

== ENCOUNTER 2023-10-24 07:50 | Outpatient (CLI) | payer OTHER, SELFPAY ==
--- NOTE | 2023-10-24 07:45 | RT.EKG_ITS ---
APPROVED REPORT Exam: Resting ECG Reason for Exam: [facility] Patient Location: O HR:70 bpm ECG Measurements Heart Rate 70 AXIS TN 187 P 160 QRSd 130 QRS 148 QT 452 T 148 QTc 488 Conclusion Atrial-sensed ventricular-paced rhythm...ventricular pacing tracks p-waves No further analysis attempted due to paced rhythm Artifact in lead(s) I,II,III,aVR,V2 and baseline wander in lead(s) V2
== END 2023-10-24 07:51 | disposition home or self-care (01) ==
LOC: DI.CARD 07:51
PROVIDERS: PCP Family Medicine; Visit Provider Internal Medicine Cardiovascular Disease
DX: I42.8 Other cardiomyopathies (principal)
CPT/HCPCS: 93010

== ENCOUNTER → 2024-02-11 19:04 | Outpatient (CLI) | payer OTHER, SELFPAY ==
--- NOTE | 2024-02-11 10:59 | DI.RAD_ITS ---
Exam(s) XR SHOULDER RT COMPLETE 2+V EXAM: XR SHOULDER RT COMPLETE 2+V CLINICAL HISTORY: r shoulder pain, M25.511. TECHNIQUE: 2D digital imaging was performed of the right shoulder. Five images were obtained. AP, Grashey, Y-view and axillary views were obtained. COMPARISON: No exams were available for comparison FINDINGS: BONES: No acute fracture is present. No bony destructive lesion is seen. JOINTS: No dislocation present. There are mild degenerative changes seen at the acromioclavicular aisha nt. The glenohumeral joint is well maintained. SOFT TISSUE: There is a cardiac device in place. IMPRESSION: Mild degenerative changes of the AC joint. DATA REPOSITORY: RADIATION DOSE DELIVERED:
== END ==
PROVIDERS: PCP Family Medicine; Visit Provider Family Medicine
DX: M25.511 Pain in right shoulder (principal)
CPT/HCPCS: 73030

== ENCOUNTER 2024-09-17 04:00 | Outpatient (CLI) | payer OTHER, SELFPAY ==
[2024-09-17 08:12] LABS: ALT 22 U/L (14-59); AST 19 U/L (15-37); Albumin 4.1 g/dL (3.4-5.0); Alkaline Phosphatase 69 U/L (46-116); Anion Gap 3.3 mmol/L (3-11); BUN 18 mg/dL (7-18); Bilirubin, Total 1.31 mg/dL (0.2-1.0); CO2 33.7 mmol/L (21.0-32.0); CREATININE 0.8 mg/dL (0.55-1.02); Calcium 9.6 mg/dL (8.5-10.1); Chloride 107 mmol/L (98-107); Estimated GFR 80.71 (mL/min/1.73m2); Glucose 121 mg/dL (74-106); Potassium 4.1 mmol/L (3.5-5.1); Sodium 144 mmol/L (136-145); Total Protein 7.7 g/dL (6.4-8.2)
== END 2024-09-17 04:01 | disposition home or self-care (01) ==
PROVIDERS: PCP Family Medicine; Visit Provider Family Medicine
DX: I10 Essential (primary) hypertension (principal)
CPT/HCPCS: 36415; 80053

== ENCOUNTER 2024-11-19 00:53 | Outpatient (CLI) | payer OTHER, SELFPAY ==
--- NOTE | 2024-11-19 06:45 | DI.MAMMO_ITS ---
Exam(s) MAMMO SCREENING EXAM: MAMMO SCREENING CLINICAL HISTORY: screening,z12.39 TECHNIQUE: Bilateral full field digital CC and MLO mammographic images were obtained with 3D tomosyn thesis and utilizing computer aided detection (CAD). COMPARISON: Available for comparison. FINDINGS: Masses/Architectural Distortion: None seen. Microcalcifications: No suspicious pleomorphic-type are seen. Skin Thickening/Nipple Retraction: None. IMPRESSION: 1. No significant interval change with no specific features of malignancy noted. 2. Unless there is more urgent need, screening mammography is recommended, as per [place] [employer] guidelines. BI-RADS Category 1 - Negative Breast Density - Category B - Scattered areas of fibroglandular density Breast density category C or D implies that the patient has dense breast tissue. Dense breast tissue is very common and is not abnormal but dense breast tissue can make it harder to find cancer on a ma mmogram. Also, dense breast tissue may increase their breast cancer risk. This information about the result of the mammogram report was provided to the patient to raise their awareness. Use this report when you speak with the patient about their risks for breast cancer, which includes their family hist ory. At that time, you may recommend for more screening tests (Ultrasound or MRI) as they might be us eful based on their risk. A negative radiographic report should not delay biopsy if a dominant or clinically suspicious mass is present. Up to ten percent of cancers are not identified on mammography. A negative report may reinforce clinical impression. Adenosis and dense breasts may obscure an underlying neoplasm. False positive reports average 6 to 10%. Patient will receive a letter notifying them of these results.
== END 2024-11-19 01:13 ==
LOC: DI 00:53
PROVIDERS: PCP Family Medicine; Visit Provider Family Medicine
DX: Z12.31 Encounter for screening mammogram for malignant neoplasm of breast (principal); R92.323 Mammographic fibroglandular density, bilateral breasts
CPT/HCPCS: 77063; 77067

== ENCOUNTER 2025-02-11 00:23 | Outpatient (CLI) | payer OTHER, SELFPAY ==
--- NOTE | 2025-02-11 08:30 | DI.US_ITS ---
APPROVED REPORT EXAM: Comprehensive 2D, Doppler, and color-flow Echocardiogram Patient Location: Out-Patient Tailor'S Aide: Marce Bolton RDCS (AE) Indications: MV with Mitral Regurgitation, CM, ICD Other Information Study Quality: Adequate Conclusion Normal left ventricular wall thickness and chamber size. Ejection fraction is 55 to 60%. There are no segmental wall motion abnormalities Normal right ventricular size and function Mildly dilated left atrium. Normal right atrial size Device lead noted in the right heart Aortic valve is trileaflet and very mildly thickened without stenosis or regurgitation Mild late systolic mitral valve prolapse, mild mitral regurgitation Estimated right ventricular systolic pressure is 31 mmHg Wall motion Left Ventricle The left ventricle is normal size. The left ventricular systolic function is normal. The left ventricular ejection fraction is within the normal range. There is normal left ventricular wall thickness. There is normal LV segmental wall motion. There is no ventricular septal defect visualized. LVEF is 58%. Right Ventricle The right ventricle is normal size. The right ventricular systolic function is normal. Device lead is present in the right ventricle. Atria Left atrium is mildly dilated. The right atrium size is normal. The interatrial septum is intact with no evidence for an atrial septal defect. Aortic Valve The aortic valve is very mildly thickened Aortic valve is trileaflet. There is no aortic valvular stenosis. No aortic regurgitation is present. Mitral Valve The mitral valve is normal in structure. No evidence of mitral valve stenosis. Mild mitral regurgitation. Mild mitral valve prolapse. Tricuspid Valve The tricuspid valve is normal in structure. There is no tricuspid valve stenosis. Trace tricuspid regurgitation. The RVSP is 31.2 mmHg. Pulmonic Valve The pulmonary valve is normal in structure. There is no pulmonic valvular stenosis. Trace pulmonic regurgitation. Great Vessels The aortic root is normal in size. The ascending aorta is normal in size. Aortic arch is not well visualized. IVC is normal in size and collapses >50% with inspiration. Pericardium There is no pericardial effusion. 2D Dimensions IVSD d PLAX 0.83 cm F: 0.6-1.0 Ao Root d 2.68 cm F: 2.7 - 3.3 LVPW d PLAX 0.84 cm F: 0.6 - 1.0 Ao Asc Diam d 3.04 cm F: 2.3 - 3.1 LVID d PLAX 4.50 cm F: 3.8 - 5.2 LVDs 3.08 cm F: 2.2 - 3.5 LV EF Teichholz 58.8 % FS 30.99 % LV EDV (Teich) 90.4 mL LV ESV (Teich) 37.2 mL M-Mode TAPSE 1.79 cm (M/F) >1.7 Auto EF LV EDV A4C 87.4 mL LV EDV A2C 119.0 mL LV EDV BP 101.9 mL LV ESV A4C 39.2 mL LV ESV A2C 52.8 mL LV ESV BP 45.2 mL LVEF(%) A4C 55.2 % LVEF(%) A2C 55.7 % LVEF(%) BP 55.7 % LV SV A4C 48.2 ml LV SV A2C 66.2 ml LV SV BP 56.7 ml LV CO A4C 2.9 L/min LV CO A2C 4.0 L/min LV CO BP 3.4 L/min HR A4C 59.90 BPM HR A2C 60.00 BPM LV EDV Index (BP) LA Volume LA Length A4C 5.2 cm LA Length A2C 5.3 cm LA Area A4C s 19.24 cm2 LA Area A2C s 17.40 cm2 LA Vol A4C A-L 60.83 mL LA Vol A2C A-L 48.52 mL LA Vol Biplane A-L 55.0 mL LA Vol/BSA A4C A-L LA Vol/BSA A2C A-L LA Vol/BSA BP A-L 64.7 mL/m2 LA Vol A4C MOD 56.3 mL LA Vol A2C MOD 43.9 mL LA Vol BP MOD 50.2 mL RA Volume RA Area A4C 14.2 cm2 RA ESV A4C (A-L) 40.1mL RA Vol/BSA A4C A-L RA Length A4C 4.3 cm RA ESV A4C (MOD) 37.5mL LV Diastology MV E' medial 0.087 (>0.07 m/s) MV E Vmax 0.80 (0.4-1.3 m/s) MV E/E' MED 9.10 (<14) MV A Vmax 0.90 (0.4-1.3 m/s) MV E' lateral 0.062 (>0.1 m/s) E/A Ratio 0.9 MV E/E' LAT 12.93 (<14) MV E' Average 0.075 m/s MV E/E'(average) 10.69 Aortic Valve AoV Vmax 1.43 m/s LVOT Vmax 0.93 m/s AoV Peak Grad 8.2 mmHg LVOT Peak Grad 3.5 mmHg AoV Area (Vmax) 1.93 cm2 LVOT VTI 0.178 m AoV VTI 0.324 m LVOT Mean Grad 1.5 mmHg AoV Mean Ernesto. 0.93 m/s LVOT SV 52.80 mL AoV Mean Grad 4.0 mmHg LVOT Diam s 1.90 cm AoV Area (VTI) 1.63 cm2 AV Regurg Peak Gr. 8.22 mmHg Velocity Ratio 0.65 Mitral Valve MV DT 164 (160-240 msec) MV Vmax TIPS 0.84 m/s MV Mean Grad 1.3 (<2mmHg) MV VTI 0.278 m Pulmonary Valve PV Vmax 0.68 (0.5-1.5 m/s) RVOT Vmax 0.73 m/s PV Peak Grad 1.9 mmHg RVOT Peak Gr. 2.2 mmHg PV Mean Ernesto 0.51 m/s RVOT VTI 0.158 m PV Mean Grad 1.2 mmHg RVOT Mean Gr. 1.2 mmHg Tricuspid Valve RA Pressure 3.00 mmHg TR Vmax 2.66 m/s TV S' 0.12 m/s TR Peak Grad 28.2 mmHg RVSP (TR) 31.2 mmHg
== END 2025-02-11 00:43 ==
LOC: DI 00:23
PROVIDERS: PCP Family Medicine; Visit Provider Internal Medicine Cardiovascular Disease
DX: I34.0 Nonrheumatic mitral (valve) insufficiency (principal)
CPT/HCPCS: 93306

== ENCOUNTER 2025-03-06 21:03 | Emergency (ER) | payer OTHER, SELFPAY ==
[2025-03-06] VITALS (39 sets, daily range): BP systolic 131–186; BP diastolic 60–88; PULSE 77–105; RESP 13–25; TEMP 36.8; O2SAT 93–97
--- NOTE | 2025-03-06 21:00 | RT.EKG_ITS ---
APPROVED REPORT Exam: Resting ECG Reason for Exam: curryib went off Patient Location: E HR:91 bpm ECG Measurements Heart Rate 91 AXIS RI 156 P -25 QRSd 143 QRS 119 QT 460 T 90 QTc 567 Conclusion AV paced
[2025-03-06 21:24] LABS: Abs Immature Grans 0.02 10^3/uL (0.0-0.06); HCT 44.0 % (36.0-46.0); HGB 14.9 g/dL (11.2-15.7); Immature Grans % 0.3 %; MCH 32.0 pg (27.0-33.0); MCHC 33.9 % (32.0-36.0); MCV 94 fL (80-95); MPV 11.4 fL (8.0-11.0); Platelet Count 183 10^3/uL (130-400); RBC 4.66 10^6/uL (3.93-5.22); RDW 12.2 % (11.7-14.6); RDW-SD 42.7 fL; WBC 7.36 10^3/uL (4.4-10.8)
[2025-03-06 21:42] LABS: ALT 24 U/L (14-59); AST 21 U/L (15-37); Albumin 4.3 g/dL (3.4-5.0); Alkaline Phosphatase 79 U/L (46-116); Anion Gap 9.1 mmol/L (3-11); BUN 19 mg/dL (7-18); Bilirubin, Total 0.8 mg/dL (0.2-1.0); CO2 30.9 mmol/L (21.0-32.0); Calcium 9.4 mg/dL (8.5-10.1); Chloride 102 mmol/L (98-107); Creatine Kinase 47 U/L (26-192); Estimated GFR 69.64 (mL/min/1.73m2); Glucose 119 mg/dL (74-106); Magnesium 1.7 mg/dL (1.8-2.4); Potassium 3.5 mmol/L (3.5-5.1); Sodium 142 mmol/L (136-145); Total Protein 7.7 g/dL (6.4-8.2); Troponin I 11 ng/L (<or=51)
[2025-03-06 21:43] LABS: INR 1.1 (0.9-1.1); Prothrombin Time 10.7 sec (9.1-11.1)
[2025-03-06] MEDS: MAGNESIUM SULFATE 2 GM/50 ML BAG IVINF (22:10)
[2025-03-06 22:41] LABS: Troponin I 11 ng/L (<or=51)
--- NOTE | 2025-03-06 23:30 | W.ED.GENAD ---
Discharge Plan Disposition Patient Disposition: Home Discharge Details Clinical Impression: Biventricular implantable cardioverter-defibrillator (ICD) in situ, Hypomagnesemia Primary Care Provider: Aparna Crocker ED Provider: Merle Light Home Meds and New Rx's Prescriptions: No Action cholecalciferol (vitamin D3) 2,000 unit capsule 2,000 unit PO DAILY hydrochlorothiazide 12.5 mg tablet 12.5 mg PO DAILY Qty: 90 6RF lisinopril 40 mg tablet 40 mg PO DAILY Qty: 90 12RF carvedilol 6.25 mg tablet 6.25 mg PO BID Qty: 180 3RF Rx Instructions: must administer with a meal/food acetaminophen 500 mg capsule 1,000 mg PO Q8H PRN (Reason: pain) Qty: 90 0RF Discharge Instructions Additional Instructions: Cardiology is recommending that you increase your carvedilol dose to 12.5 mg twice daily. On Sunday please call the [facility] EP clinic And tell them that the device made a sound and that the core composer machine tender on-call has recommended that you come in for a formal device interrogation If you have any more beeps, sounds, device issues or firing or other symptoms, cardiology is recommending that you come to the [facility] emergency department directly HPI General Date/Time Provider Initiated Documentation: 03/06/25 21:07. Limitations to Documentation: no limitations. Information obtained by: patient. HPI Narrative: 69-year-old female with past medical history of hypertension, cardiomyopathy, AICD in place presents for evaluation after her pacemaker was making a count. She reports that she was lying in bed when she started hearing the stone. She does not feel that she had was having any symptoms prior to hearing it. She states that when she started hearing it she felt like her heart was racing. She thinks it may be just hearing the tone was making her heart race. She was not having any chest pain, shortness of breath or sweating. She reports that the symptoms stopped and after the tone stop she was not having any concerning symptoms. She states that she has heard a tone once previously and this was in the setting that her battery needed to be replaced, but she states that she had her battery replaced last year. She states that she is otherwise been feeling fine and not having any recent symptoms, no vomiting, chills abdominal pain. Related Data Home Medications ?Medication ?Instructions ?Recorded ?Confirmed acetaminophen 500 mg capsule 1,000 mg (2 x 500 mg) PO Q8H PRN 07/25/18 03/06/25 pain #90 caps cholecalciferol (vitamin D3) 50 2,000 unit PO DAILY 05/08/19 03/06/25 mcg (2,000 unit) capsule carvedilol 6.25 mg tablet 6.25 mg PO BID #180 tabs 05/26/24 03/06/25 hydrochlorothiazide 12.5 mg tablet 12.5 mg PO DAILY #90 tabs 09/22/24 03/06/25 lisinopril 40 mg tablet 40 mg PO DAILY #90 tabs 09/22/24 03/06/25 Previous Rx's ?Medication ?Instructions ?Recorded acetaminophen 500 mg capsule 1,000 mg (2 x 500 mg) PO Q8H PRN 07/25/18 pain #90 caps carvedilol 6.25 mg tablet 6.25 mg PO BID #180 tabs 05/26/24 hydrochlorothiazide 12.5 mg tablet 12.5 mg PO DAILY #90 tabs 09/22/24 lisinopril 40 mg tablet 40 mg PO DAILY #90 tabs 09/22/24 Allergies Allergy/AdvReac Type Severity Reaction Status Date / Time No Known Allergies Allergy Verified 11/28/24 09:01 General Stated Complaint: Arrhythmia CHRISTY: 2 Exam Narrative Exam Narrative: Review of Systems: All systems reviewed & are unremarkable except as noted in HPI and below Well-developed, no acute distress NCAT PERRL, normal conjunctiva RRR Unlabored respiratory effort clear bilaterally Nondistended abdomen Extremities w/o edema Course Vital Signs Vital signs: Vital Signs Pulse 98 H 03/06/25 21:09 Respiratory Rate 24 03/06/25 21:09 Blood Pressure 186/88 H 03/06/25 21:09 Pulse Oximetry 96 03/06/25 21:09 Temperature 36.8 C 03/06/25 23:28 Pulse 77 03/06/25 23:28 Respiratory Rate 15 03/06/25 23:28 Blood Pressure 137/61 03/06/25 23:28 Blood Pressure Mean 85 03/06/25 21:46 Blood Pressure Position Sitting 03/06/25 21:09 Pulse Oximetry 96 03/06/25 23:28 Oxygen Delivery Method Room Air 03/06/25 21:09 Oxygen Flow Rate 0 03/06/25 21:09 Pain Level 0 03/06/25 23:28 Lab/Test Results Lab/Test Results: Laboratory Tests Range/Units 03/06/25 03/06/25 21:17 22:15 WBC (4.4-10.8) 10^3/uL 7.36 RBC (3.93-5.22) 10^6/uL 4.66 Hgb (11.2-15.7) g/dL 14.9 Hct (36.0-46.0) % 44.0 MCV (80-95) fL 94 MCH (27.0-33.0) pg 32.0 MCHC (32.0-36.0) % 33.9 RDW (11.7-14.6) % 12.2 Plt Count (130-400) 10^3/uL 183 MPV (8.0-11.0) fL 11.4 H Immature Gran % % 0.3 Neutrophils % % 55.3 Lymphocytes % % 32.5 Monocytes % % 10.2 Eosinophils % % 1.2 Basophils % % 0.5 Nucleated RBC % (0.0-0.3) % 0.0 Absolute Neutrophils (1.2-6.7) 10^3/uL 4.07 Absolute Lymphocytes (1.2-3.4) 10^3/uL 2.39 Absolute Monocytes (0.1-0.8) 10^3/uL 0.75 Absolute Eosinophils (0.0-0.7) 10^3/uL 0.09 Absolute Basophils (0.0-0.2) 10^3/uL 0.04 PT (9.1-11.1) sec 10.7 INR (0.9-1.1) 1.1 Sodium (136-145) mmol/L 142 Potassium (3.5-5.1) mmol/L 3.5 Chloride (98-107) mmol/L 102 Carbon Dioxide (21.0-32.0) mmol/L 30.9 Anion Gap (3-11) mmol/L 9.1 BUN (7-18) mg/dL 19 H Creatinine (0.55-1.02) mg/dL 0.9 Est GFR (CKD-EPI 2020) (mL/min/1.73m2) 69.64 Glucose (74-106) mg/dL 119 H Calcium (8.5-10.1) mg/dL 9.4 Magnesium (1.8-2.4) mg/dL 1.7 L Total Bilirubin (0.2-1.0) mg/dL 0.8 AST (15-37) U/L 21 ALT (14-59) U/L 24 Alkaline Phosphatase (46-116) U/L 79 Creatine Kinase (26-192) U/L 47 Troponin I (<or=51) ng/L 11 11 Total Protein (6.4-8.2) g/dL 7.7 Albumin (3.4-5.0) g/dL 4.3 Medical Decision Making Emergent evaluation of pacemaker noise. The patient reports that this noticed at home, the pacer did not actually fire. She is concerned that this might be a concerning symptom so she came for evaluation. Her EKG was reviewed and independently interpreted, AV paced at 91, no acute ischemic changes. An interrogation of her device device was performed. There was no shocks or treatment given. There is 2 monitored settings of VT and 7 events of SVT though it does not give me a time or duration of either of these. I reviewed her lab work and detect some mild hypomagnesemia which was repleted via IV. But otherwise no concerning abnormalities, electrolyte derangement, her troponin is within normal limits as well. I discussed with [facility] cardiology who reviewed her medical record and noted prior EP visits. At this time they are recommending that she increase her carvedilol to 12.5 mg twice daily. They recommend that she follow-up in EP clinic on Sunday for formal device interrogation. Patient understands that she needs to call the clinic on Sunday to get this scheduled. She understands based on the steel cutter recommendations that should she have any additional symptoms or sounds coming from her device that she should go to the [facility] emergency department so that they can evaluate her in person. [facility] All Active Problems (Updated 03/06/25 @ 23:12 by Merle Light MD) Hypomagnesemia (Acute) Shoulder pain, right (Acute) Pulmonary nodules/lesions, multiple (Acute) Abnormal CT of the chest (Acute) Mitral regurgitation (Chronic) Pneumonia (Acute) Ulnar nerve external compression syndrome (Acute) Biventricular implantable cardioverter-defibrillator (ICD) in situ (Acute) [employer] ICD 08/18/11, generator change [facility] 03/23/23 RH Poor sleep (Acute) Hypertension (Chronic) Annual physical exam (Acute) History of hysterectomy (Acute) Impaired fasting glucose (Acute 11/30/10) Low back pain (Acute 11/05/14) Primary cardiomyopathy (Acute 03/19/11) De Quervain's tenosynovitis, left (Acute) Status post release on 07/25/2018 Medical History (Updated 03/06/25 @ 23:12 by Merle Light MD) Impaired fasting glucose 11/30/10 Acute bilateral low back pain 11/05/14 Cardiomyopathy (11/05/14) 03/19/11 primary, EF 20%, frequent PVC's cardiac meds; ICD in place - never gone off Annual physical exam (12/02/15) Acute medial meniscus tear (10/14/08) As shown in MRI dated 10/09/08- partial tear near the femoral attachment. Tear of the body of the medial meniscus. ACL tear (10/14/08) As shown in MRI dated 10/09/08- partial tear Surgical History H/O: hysterectomy Pacemaker (~11/2015) ORTHO (~06/2016) WRIST FX Implantation of automatic cardioverter/defibrillator, total system (AICD) (~09/2016) Family History Mother , AGE 82 Stroke Heart disease Father , OLD AGE at age 87 Heart disease CHF Sister Stroke Brother No problems noted. Brother Substance abuse Diabetes Brother , age 59 Substance abuse Daughter No problems noted. Daughter No problems noted. Social History Smoking/Tobacco Use Status: Current every day Tobacco Type: cigarettes Smoking packs per day: 1 Smoking cigarettes per day: 20.0 Tobacco: How many years used: 40 Quit status: considering quitting Second Hand Exposure: Yes Smoking risk assessment performed?: Yes Alcohol Intake: current Alcohol Intake frequency: 0-2 drinks per day Alcohol type: wine Drug use: Never Substance use type: does not use Adopted: No Caregiver/Support person: No Foster care: No Household members: spouse Housing: house Number of Children: 2 number of grandchildren: 3 Communication Needs: None Education Level: college Do you need help understanding health information?: Never 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 Pets and animals: Yes Pets and animals: dog(s) Sexually active: Yes Do you think of yourself as: straight/heterosexual Current gender identity: female What is your relationship status?: How often do you talk on the phone with friends or family?: three or more times per week How often do you get together with friends or relatives?: once per week Do you belong to any clubs or organized social groups?: no Panel score (0-1 are the most socially isolated patients): 2 NHANES result reviewed/action taken: No What type of physical activity do you participate in: decline to answer Effie/Yazidi: L[employer] Special effie needs: No Agree to transfusion: Yes Seatbelt use: always Helmet use: No (N/A) Drive intox or ride w/intox local [place] truck driver: No Working smoke detector in home: Yes Carbon monox detector in home: Yes Firearms in home: No Do you feel safe at home: Yes Do you feel safe in your relationship?: Yes Victim of physical abuse: No Victim of emotional abuse: No Victim of sexual abuse: No PAWSS Have you Been Recently Intoxicated or Drunk Within the Last 30 days?: No Have you Ever Experienced Previous Episodes of Alcohol Withdrawal?: No Have you ever Experienced Withdrawal Seizures?: No Have you ever Experienced Delirium Tremens(DT)s?: No Have you ever undergone Alcohol Rehabilitation Treatment (i.e, inpt ot outpatient treatment programs)?: No Have you ever Experienced Blackouts?: No Have you ever Combined Alcohol with other Downers within the last 90 days?: No Have you ever Combined Alcohol with any other Substance of Abuse during the last 90 days?: No Positive Blood Alcohol level on Presentation? [PCS.BAL]: No Evidence of Increased Autonomic Activity (i.e. HR>120, tremor, sweating, agitation, nausea)?: No Result: 0
== END 2025-03-06 23:28 | disposition home or self-care (01) ==
PROVIDERS: Emergency Provider Emergency Medicine; PCP Family Medicine
DX: E83.42 Hypomagnesemia (principal); I10 Essential (primary) hypertension; Z95.810 Presence of automatic (implantable) cardiac defibrillator; F17.210 Nicotine dependence, cigarettes, uncomplicated
CPT/HCPCS: 80053; 82550; 93005; 96365; 99284; 83735; 84484; 85025; 85610; 93010; 99283; J3475